=== PATIENT | female | born 1975 | race Hispanic/Latino ===

== ENCOUNTER 2019-11-11 18:31 | Emergency (ER) | payer MEDICAID, OTHER ==
[2019-11-11 19:02] LABS: BASOPHILS % (AUTO) 0.2 % (0.0-5.0); EOSINOPHILS % (AUTO) 1.7 % (0.0-8.0); HEMATOCRIT 34.2 % (36-48); LYMPHOCYTES % (AUTO) 35.2 % (21.0-51.0); MEAN CORPUSCULAR HEMOGLOBIN 27.7 pg (27.0-33.0); MEAN CORPUSCULAR HGB CONC 32.5 g/dL (32.0-36.0); MEAN CORPUSCULAR VOLUME 85.3 fL (79-99); NEUTROPHILS % (AUTO) 56.6 % (40.0-77.0); PLATELET COUNT (AUTO) 371 K/uL (130-400); RED BLOOD CELL COUNT(AUTO) 4.01 MIL/uL (4.00-5.50); RED CELL DISTRIBUTION WIDTH 13.2 % (11.0-15.5); WHITE BLOOD COUNT (AUTO) 13.7 K/uL (4.8-10.8)
[2019-11-11 19:16] LABS: HCG,QUAL RESULT NEGATIVE (NEGATIVE)
[2019-11-11 19:23] LABS: APPEARANCE,URINE Clear (CLEAR); BILIRUBIN,URINE Negative (NEGATIVE); COLOR,URINE Yellow (YELLOW); GLUCOSE, URINE (UA) Negative (NEGATIVE); KETONES,URINE Trace mg/dL (NEGATIVE); LEUKOCYTE ESTERASE ,URINE Trace (NEGATIVE); NITRATE,URINE Negative (NEGATIVE); OCCULT BLOOD,URINE Large (NEGATIVE); PROTEIN,URINE Trace mg/dL (NEGATIVE)
[2019-11-11 19:32] LABS: CREATININE 0.7 mg/dL (0.5-1.5); POTASSIUM 3.9 mmol/L (3.5-5.1)
[2019-11-11 19:34] LABS: ALBUMIN 3.9 g/dL (3.5-5.0); BILIRUBIN,TOTAL 0.3 mg/dL (0.2-1.0); TOTAL PROTEIN, SERUM 7.8 g/dL (6.0-8.3)
[2019-11-11 19:39] LABS: BACTERIA,URINE Few /HPF (None Seen); RBC,URINE >100 /HPF (0-1); SQUAMOUS EPITHELIAL CELL,UR 0-2 /HPF (0-2); WBC,URINE 0-1 /HPF (0-1)
[2019-11-11 19:47] LABS: INR 0.96 (0.85-1.15); PROTHROMBIN TIME 10.4 SEC (9.6-11.6)
[2019-11-11] MEDS ORDERED: KETOROLAC TROMETHAMINE 30MG/ML ONE (22:06)
== END 2019-11-11 22:47 | disposition home or self-care (01) ==
LOC: EDH 18:31
DX: N93.8 Other specified abnormal uterine and vaginal bleeding (principal); N83.202 Unspecified ovarian cyst, left side; N83.201 Unspecified ovarian cyst, right side; Z90.49 Acquired absence of other specified parts of digestive tract
CPT/HCPCS: 36415; 76856; 80053; 81001; 81025; 85025; 85610; 85730; 96372; 99284; J1885

== ENCOUNTER 2025-04-09 01:50 | Emergency (ER) | payer SELFPAY ==
[~2025-04-09] VITALS: Ht 152.4 cm; Wt 75.3 kg
[2025-04-09 02:26] LABS: IMMATURE GRANULOCYTE ABSOLUTE 0.07 K/uL (0-1); NUCLEATED RED BLOOD CELLS 0.0 % (0.0-0.19); PLATELET COUNT (AUTO) 316 K/uL (130-400); RED BLOOD CELL COUNT(AUTO) 4.84 MIL/uL (4.00-5.50); RED CELL DISTRIBUTION WIDTH 16.0 % (11.0-15.5); WHITE BLOOD COUNT (AUTO) 16.8 K/uL (4.8-10.8)
[2025-04-09 02:28] LABS: APPEARANCE,URINE CLOUDY (CLEAR); GLUCOSE, URINE (UA) NEGATIVE (NEGATIVE); LEUKOCYTE ESTERASE ,URINE 500 Leu/uL (NEGATIVE); NITRATE,URINE NEGATIVE (NEGATIVE); OCCULT BLOOD,URINE MODERATE (NEGATIVE)
[2025-04-09] MEDS: LACTATED RINGERS 1000ML 1,000 ML IV ONE (02:32)
[2025-04-09 02:33] LABS: ADD UA MICROSCOPIC YES
[2025-04-09 02:35] LABS: SQUAMOUS EPITHELIAL CELL,UR RARE /HPF (0-2); WBC CLUMP FEW /HPF (0-1)
[2025-04-09 02:35] LABS: CREATININE 0.6 mg/dL (0.5-1.0); GLOMERULAR FILTR. RATE CALC 110.0 mL/min (>90); GLUCOSE,RANDOM 137.0 mg/dL (70-105); SODIUM SERUM 138.0 mmol/L (136-145); UREA NITROGEN, BLOOD 12.0 mg/dL (7-18)
[2025-04-09 02:39] LABS: ASPARTATE AMINOTRANSFERASE 18.0 U/L (10-37); TOTAL PROTEIN, SERUM 7.1 g/dL (6.0-8.3)
--- NOTE | 2025-04-09 04:04 | ERN ---
General Chief Complaint: Painful Urination Stated Complaint: C/O PAIN WITH BURNING WHEN VOIDING W/ RT BACK PAIN Time Seen by MD: 02:12 History of Present Illness Initial Comments Mrs Chu is a 49-year-old female with a past medical history of essential hypertension who comes in today with a chief complaint of burning with the urination and right back pain. Patient reports that over the last few days she has had worsening hesitancy urgency and painful urination. Patient states that pain has progressed now to her back. Patient does have some associated nausea. Allergies: Coded Allergies: No Known Drug Allergies (Unverified Allergy, Unknown, 11/11/19) Past Medical History Past Medical History: No Pertinent History Past Surgical History: Cholecystectomy Female( History) LMP: Apr 09, 2025 ROS Dictation Constitutional: Negative for fever,chills, and weight loss Eyes: Negative for injury, pain,redness, and discharge ENT: Negative for injury,pain or swelling Cardiovascular: Negative for chest pain, palpitations, and edema Respiratory: Negative for shortness of breath, cough, and wheezing, Abdomen/GI: Negative for abdominal pain, nausea, vomiting, diarrhea, and constipation Back: Negative for injury and pain : Painful urination MS/Extremity: Negative for injury and deformity Skin: Negative for rash, and discoloration Neuro: Negative for headache, weakness, numbness, tingling, and seizure Psych: Negative for suicide ideation, homicidal ideation, and hallucinations Physical Exam Physical Exam Dictation General: awake, alert, NAD Head/Face: Normocephalic, atraumatic Eyes: PERRL, EOMI, vision at baseline ENT: oral cavity clear, TMs clear, no signs of infection Neck: Trachea midline, supple, no nuchal rigidity Cardiovascular: RRR, normal S1/S2, No MRGs, no JVD Respiratory: CTAB, no respiratory distress, No rales or wheezes Abdomen: Soft, non-tender, non-distended, normal bowel sounds, no guarding or rebound. Skin: Warm, dry, normal turgor, no rash MS/Extremity: CVA tenderness Neuro: COAx4, GCS 15, strength 5/5, CN 2-12 intact, normal cerebellar exam, normal gait, Psych: Normal behavior, mood, and affect normal Results Laboratory and Microbiology Lab and Micro Result Laboratory Tests Test 04/09/25 01:58 04/09/25 02:09 Urine Color YELLOW (YELLOW) Urine Appearance CLOUDY (CLEAR) H Urine pH 5.5 (5.0-8.0) Urine Specific [place] 1.014 (1.001-1.031) Urine Protein 70 mg/dL (NEGATIVE) H Urine Glucose (UA) NEGATIVE mg/dL (NEGATIVE) Urine Ketones NEGATIVE mg/dL (NEGATIVE) Urine Occult Blood MODERATE (NEGATIVE) H Urine Nitrate NEGATIVE (NEGATIVE) Urine Bilirubin NEGATIVE mg/dL (NEGATIVE) Urine Urobilinogen 0.2 mg/dL (0.2-1.0) Urine Leukocyte Esterase 500 [place]/uL (NEGATIVE) H Urine RBC TNTC /HPF (0-1) H Urine WBC TNTC /HPF (0-1) H Urine WBC Clumps (Auto) FEW /HPF (0-1) Urine Squamous Epithelial Cells RARE /HPF (0-2) Urine Bacteria MOD /HPF (None Seen) Urine HCG, Qualitative NEGATIVE (NEGATIVE) White Blood Count 16.8 K/uL (4.8-10.8) H Red Blood Count 4.84 MIL/uL (4.00-5.50) Hemoglobin 12.3 g/dL (12.0-16.0) Hematocrit 38.4 % (36-48) Mean Corpuscular Volume 79.3 fL (79-99) Mean Corpuscular Hemoglobin 25.4 pg (27.0-33.0) L Mean Corpuscular Hemoglobin Concent 32.0 g/dL (32.0-36.0) Red Cell Distribution Width 16.0 % (11.0-15.5) H Platelet Count 316 K/uL (130-400) Mean Platelet Volume 10.8 fL (7.5-10.5) H Immature Granulocyte % (Auto) 0.4 % (0-1) Neutrophils (%) (Auto) 71.5 % (40.0-77.0) Lymphocytes (%) (Auto) 21.3 % (21.0-51.0) Monocytes (%) (Auto) 5.3 % (3.0-13.0) Eosinophils (%) (Auto) 1.1 % (0.0-8.0) Basophils (%) (Auto) 0.4 % (0.0-5.0) Neutrophils # (Auto) 12.0 K/uL (1.8-7.7) H Lymphocytes # (Auto) 3.6 K/uL (1.0-4.8) Monocytes # (Auto) 0.9 K/uL (0.1-1.0) Eosinophils # (Auto) 0.18 K/uL (0.00-0.70) Basophils # (Auto) 0.06 K/uL (0.00-0.20) Absolute Immature Granulocyte (auto 0.07 K/uL (0-1) Nucleated Red Blood Cells 0.0 % (0.0-0.19) Sodium Level 138 mmol/L (136-145) Potassium Level 3.6 mmol/L (3.5-5.1) Chloride Level 103 mmol/L (101-111) Carbon Dioxide Level 27 mmol/L (21-32) Blood Urea Nitrogen 12 mg/dL (7-18) Creatinine 0.6 mg/dL (0.5-1.0) Glomerular Filtration Rate Calc 110 mL/min (>90) Random Glucose 137 mg/dL (70-105) H Total Calcium 8.4 mg/dL (8.5-10.1) L Total Bilirubin 0.3 mg/dL (0.2-1.0) Aspartate Amino Transf (AST/SGOT) 18 U/L (10-37) Alanine Aminotransferase (ALT/SGPT) 24 U/L (12-78) Alkaline Phosphatase 103 U/L (50-136) Total Protein 7.1 g/dL (6.0-8.3) Albumin 3.5 g/dL (3.5-5.0) Amylase Level 39 U/L (25-115) Lipase 38 U/L (16-77) MDM CT shows the patient has bilateral ovarian cysts and some questionable thyroids but did have some mild hydroureter in the right side likely secondary to a recent passage of a right ureteral calculus. Patient will be discharged with antibiotics. MDM: Differential diagnosis: UTI Rationale: Tests considered and ordered secondary to shared decision making include: Previous outside records reviewed: Old ER visits. Risk of complication and/or morbidity or mortality of patient management: None Medications-Per medication reconciliation Need for hospitalization: Patient does not meet criteria for hospitalization. Need for emergency major/minor surgery: No There are no social concerns with this patient. Prescription drug management Prescriptions will include symptomatic care Patient's prior external medical records from other ER visits were reviewed by me as indicated. Prior testing and results from previous visits were reviewed. Prior tests were taken into account with medical decision making and resource utilization, independent historian/historians were used to obtain complete med [facility] history. I independently interpreted the test that were performed, results were reviewed by me and considered findings on radiology if ordered. Medical management and examination interpretation discussions were had by me with other qualified healthcare professionals as indicated for the patient's care. ED Course Orders Procedure Category Date Status Time Cbc With Differential LAB 04/09/25 Complete 02:15 Comprehensive LAB 04/09/25 Complete Metabolic Panel 02:15 Amylase LAB 04/09/25 Complete 02:15 Urinalysis Profile LAB 04/09/25 Complete 02:15 Lactated Ringers PHA 04/09/25 Complete 1000ml (Lactated 02:30 Morphine 4mg Syg PHA 04/09/25 Complete (Morphine 4mg Syg) 02:30 Ondansetron 4mg Inj PHA 04/09/25 Complete (Zofran 4mg Inj) 02:30 Lipase LAB 04/09/25 Complete 02:15 Ceftriaxone 2gm Vial PHA 04/09/25 Complete (Rocephin 2gm Inj) 02:30 Culture Urine ANUP 04/09/25 In Process 02:33 Ct Abdomen/Pelvis W/O CT 04/09/25 Resulted Contrast 03:38 ,Urine Test LAB 04/09/25 Complete 03:55 Current Medications Medications (Trade) Dose Ordered Sig/Sergio Route PRN Reason Start Time Stop Time Status Last Admin Dose Admin Ceftriaxone Sodium (Rocephin 2gm Inj) 2 gm ONCE ONCE IVPB 04/09/25 02:30 04/09/25 02:31 DC 04/09/25 02:32 Lactated Ringer's 1,000 ml @ 0 mls/hr ONCE ONCE IV 04/09/25 02:30 04/09/25 02:31 DC 04/09/25 02:32 Morphine Sulfate (morPHINE 4MG SYG) 4 mg ONCE ONCE IVP 04/09/25 02:30 04/09/25 02:31 DC 04/09/25 02:32 Ondansetron HCl (zoFRAN 4MG INJ) 4 mg ONCE ONCE IVP 04/09/25 02:30 04/09/25 02:31 DC 04/09/25 02:32 Vital Signs Date Time Temp Pulse Resp B/P (MAP) Pulse Ox O2 Delivery O2 Flow Rate FiO2 04/09/25 02:07 98.1 72 18 156/80 98 Room Air* 0 21 04/09/25 01:53 97.9 81 20 157/75 100 Room Air DX & DISP Disposition: Discharge Departure Impression: Primary Impression: UTI (urinary tract infection) Condition: Stable Scripts Sulfamethoxazole/Trimethoprim (Bactrim Ds Tablet) 800 Mg-160 Mg Tablet 1 TAB PO BID for 7 Days, #14 TAB 0 Refills Prov: RAYO PELAYO MD 04/09/25 Additional Instructions: Please follow up with your primary care physician in the next 3-5 days for further evaluation and care. Please take your antibiotics as prescribed Referrals: SELF,REFERRAL (PCP) RAYO PELAYO MD Apr 09, 2025 04:04
--- NOTE | 2025-04-09 04:44 | HMCIMG ---
EXAM: CT Abdomen and Pelvis without IV contrast CLINICAL HISTORY: Pain. TECHNIQUE: Thin collimated axial CT images of the abdomen and pelvis were obtained with sagittal and coronal reformatted images also submitted. CT scan is done according to ALARA (As Low As Reasonably Achievable). CONTRAST: None. COMPARISON: None. FINDINGS: Unremarkable visualized lung parenchyma. There is a 1.5 cm hypodense cystic structure in the left hepatic lobe. Status post cholecystectomy. No focal abnormality within the pancreas, spleen, or adrenals. 1.6 cm exophytic cystic structure in the left renal upper pole. Mild hydroureter on the right side. The urinary bladder is suboptimally distended and grossly unremarkable. 4.0 x 4.2 cm right ovarian cyst. 3.0 x 4.5 cm left ovarian cyst. Questionable uterine fibroids. No obvious bowel wall thickening, dilatation, or obstruction. Unremarkable appendix. Small, uncomplicated fat-containing umbilical hernia. Limited evaluation of the abdominal vessels due to lack of intravenous contrast. No aneurysmal dilatation of the abdominal aorta. No pathological lymphadenopathy in the abdomen or pelvis. No ascites or pneumoperitoneum is evident. No acute bony abnormality is evident. IMPRESSIONS: Bilateral ovarian cysts and questionable uterine fibroids, recommend an ultrasound of the pelvis for further evaluation. Mild hydroureter on the right side, likely secondary to a recent passage of the right ureteral calculus. Hepatic cyst. Left renal cortical cyst. /[place]
[2025-04-09] MEDS ORDERED: SULF1TAB42 PO (05:18)
[2025-04-09 05:41] VITALS: BP 141/75; PULSE 70; RESP 18; TEMP 98; O2SAT 99
== END 2025-04-09 05:43 | disposition home or self-care (01) ==
LOC: EDH 01:50
DX: N39.0 Urinary tract infection, site not specified (principal); I10 Essential (primary) hypertension; Z87.442 Personal history of urinary calculi; Z90.49 Acquired absence of other specified parts of digestive tract
CPT/HCPCS: 99285; 74176; 96365; 96375; 96366; 82150; 80053; 83690; 85025; 87086 ×2; 87186; 81001; 81025; 36415; J0696; J2405; J2270